=== PATIENT | female | born 1985 | race Caucasian/White ===

== ENCOUNTER 2021-02-19 07:28 | Emergency (ER) | payer BC ==
[2021-02-19] MEDS ORDERED: Tetracaine HCl/PF 0.5% 4 ML Bottle EYEBOTH ONE (07:30)
[2021-02-19] MEDS ORDERED: Fluorescein 1 MG Ophth Strip EYEBOTH ONE (07:30)
--- NOTE | 2021-02-19 07:37 | EDM.PDOC ---
ED HPI GENERAL MEDICAL PROBLEM - General Stated Complaint: ER Time Seen by Provider: 02/19/21 07:32 Source of Information: Reports: Patient, RN, RN Notes Reviewed History Limitations: Reports: No Limitations - History of Present Illness INITIAL COMMENTS - FREE TEXT/NARRATIVE: Patient is a 35-year-old female who presents to ER with complaint of left eye pain, light sensitivity since Saturday night. Patient states yesterday she felt as though she got something in her eye. States she has had her contacts in, currently had a hot contact and when she arrived at the ER. Patient states having the contact in the eye actually feels better. Patient unsure of what she may have gotten in her eye. Admits to light sensitivity and some blurred vision. Onset: Gradual Left Eye Pain Score (Numeric/FACES): 3 - Related Data Allergies Allergy/AdvReac Type Severity Reaction Status Date / Time codeine Allergy Other Verified 11/01/17 08:30 hydrocodone Allergy Other Verified 11/01/17 08:30 ED ROS GENERAL - Review of Systems Review Of Systems: Comprehensive ROS is negative, except as noted in HPI. ED EXAM GENERAL W FULL EYE - Physical Exam Exam: See Below Exam Limited By: No Limitations General Appearance: Alert, WD/WN, Mild Distress Eye Exam: Left Eye: Conjunctival Injection, Foreign Body, Bilateral Eye: EOMI With Correction: Yes Eyelids: Right: Normal Appearance, Left: Edema, Erythema Conjunctiva & Sclera: Right: Normal Appearance, Left: Injected Pupillary Size: Bilateral: 3 mm Pupillary Reaction: Bilateral: Brisk Ears: Normal External Exam, Hearing Grossly Normal Nose: Normal Inspection Throat/Mouth: Normal Inspection, Normal Voice, No Airway Compromise Head: Atraumatic, Normocephalic Neck: Normal Inspection, Supple, Non-Tender, Full Range of Motion Respiratory/Chest: No Respiratory Distress, Lungs Clear, Normal Breath Sounds, No Accessory Muscle Use, Chest Non-Tender Cardiovascular: Normal Peripheral Pulses, Regular Rate, Rhythm, No Edema, No Gallop, No JVD, No Murmur, No Rub GI/Abdominal: Normal Bowel Sounds, Soft, Non-Tender, No Organomegaly, No Distention, No Abnormal Bruit, No Mass (Female) Exam: Deferred Rectal (Female) Exam: Deferred Back Exam: Normal Inspection, Full Range of Motion, NT Extremities: Normal Inspection, Normal Range of Motion, Non-Tender, Normal Capillary Refill, No Pedal Edema Neurological: Alert, Oriented, CN II-XII Intact, Normal Cognition, Normal Gait, Normal Reflexes, No Motor/Sensory Deficits Psychiatric: Normal Affect, Normal Mood Skin Exam: Warm, Dry, Intact, Normal Color, No Rash Lymphatic: No Adenopathy ED EYE w/ Add Procedure - Eye Procedure Alcaine Drops Administered: Yes Eye FB Removal: Removal w/ Cotton Swab Eye Irrigated w/ Saline (ccs): 120 Antibiotic Oinment/Drps Admin: Left Eye - Additional/Other Procedure(s) Other (Free Text) Procedure(s) [Text1]: No foreign body noted. Flushed with copious amounts of saline. Erythematous and injected. Course - Vital Signs Last Recorded V/S: Last Vital Signs Temp 98.2 F 02/19/21 07:40 Pulse 51 L 02/19/21 07:40 Resp 16 02/19/21 07:40 BP 132/71 02/19/21 07:40 Pulse Ox 96 02/19/21 07:40 - Orders/Labs/Meds Orders: Active Orders 24 hr Category Date Time Status Dexamethasone/Tobramycin [Tobradex Ophth Susp] Med 02/19/21 07:45 Active 1 ml EYELF Q4H Medication Orders Tobramycin/Dexamethasone (Dexamethasone/Tobramycin 0.1-0.3% Ophth Susp 2.5 Ml Bottle) 1 ml EYELF Q4H PAUL Last Admin: 02/19/21 07:40 Dose: 1 ml Documented by: TERE Meds: Medications Generic Name Dose Route Start Last Admin Trade Name Fresesar PRN Reason Stop Dose Admin Tobramycin/Dexamethasone 1 ml 02/19/21 07:45 02/19/21 07:40 Dexamethasone/Tobramycin 0.1-0.3% Ophth Susp 2.5 Ml Bottle EYELF 1 ml Q4H PAUL Administration Discontinued Medications Generic Name Dose Route Start Last Admin Trade Name Freq PRN Reason Stop Dose Admin Fluorescein Sodium 1 mg 02/19/21 07:30 02/19/21 07:40 Fluorescein 1 Mg Ophth Strip EYEBOTH 02/19/21 07:31 1 mg ONETIME ONE Administration Tetracaine HCl 1 ml 02/19/21 07:30 02/19/21 07:40 Tetracaine Hcl/Pf 0.5% 4 Ml Bottle EYEBOTH 02/19/21 07:31 1 ml ASDIRECTED ONE Administration Departure - Departure Time of Disposition: 08:04 Disposition: Home, Self-Care 01 Condition: Good Clinical Impression: Corneal abrasion, left Qualifiers: Encounter type: initial encounter Qualified Code(s): S05.02XA - Injury of conjunctiva and corneal abrasion without foreign body, left eye, initial encounter - Discharge Information *PRESCRIPTION DRUG MONITORING PROGRAM REVIEWED*: No *COPY OF PRESCRIPTION DRUG MONITORING REPORT IN PATIENT GONZALO: No Instructions: Corneal Abrasion, [id number] Forms: ED Department Discharge Additional Instructions: If no improvement 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
[2021-02-19] MEDS ORDERED: Dexamethasone/Tobramycin 0.1-0.3% Ophth Susp 2.5 ML Bottle EYELF SCH (07:45)
== END 2021-02-19 08:06 | disposition home or self-care (01) ==
LOC: DL.ED 07:28
DX: S05.02XA Injury of conjunctiva and corneal abrasion without foreign body, left eye, initial encounter (principal); Z88.5 Allergy status to narcotic agent; X58.XXXA Exposure to other specified factors, initial encounter
CPT/HCPCS: 99283; A9270-GY